=== PATIENT | female | born 1960 | race Caucasian/White ===

== ENCOUNTER 2023-10-12 04:27 | Emergency (ER) | payer OTHER ==
[2023-10-12] VITALS (15 sets, daily range): BP systolic 94–123; BP diastolic 43–65
[~2023-10-12] VITALS: Ht 170.2 cm; Wt 74.0 kg
[2023-10-12 06:09] LABS: BASO% 0.6 % (0-3); EOS% 3.4 % (0-8); HEMATOCRIT 33.1 % (37.0-47.0); HEMOGLOBIN 10.6 g/dl (12.0-16.0); IMMATURE GRANULOCYTES 0.2 % (0.0-5.0); LYMPH% 20.8 % (15-41); MEAN CELL VOLUME 99.1 fL CALC (80.0-100.0); MEAN CORPUSCULAR HGB 31.7 pG CALC (26.0-32.0); MONO% 7.2 % (2-13); NEUT# 3.2 thou/uL (2.00-7.15); NEUT% 67.8 % (42-76); RED BLOOD COUNT 3.34 mill/uL (4.20-5.60); RED CELL DISTRI WIDTH 13.2 % (11.5-15.5)
[2023-10-12 06:37] LABS: ALBUMIN 4.1 g/dL (3.2-5.0); ALKALINE PHOSPHATASE 66 u/l (38-126); ANION GAP 8 (6-22 (CALC)); BILIRUBIN, TOTAL 0.3 mg/dL (0.02-1.3); BUN 24 mg/dL (8-23); BUN/CREATININE RATIO 17 (12-20 (CALC)); CARBON DIOXIDE 26 mmol/l (22-30); CHLORIDE 105 mmol/l (95-108); CPK 64 u/l (30-135); CREATININE 1.4 mg/dL (0.5-1.0); ESTIMATED GFR 42 ML/MIN (>=90 (CALC)); ETHYL ALCOHOL 0 mg/dl (0-30); MAGNESIUM 1.9 mg/dL (1.6-2.3); POTASSIUM 3.9 mmol/l (3.5-5.1); SGOT/AST 25 u/l (9-36); SODIUM 135 mmol/l (137-146); TOTAL PROTEIN 6.7 g/dL (6.3-8.2)
[2023-10-12 07:43] LABS: URINE BLOOD DIPSTICK Negative (NEGATIVE); URINE GLUCOSE - DIPSTICK Negative (NEGATIVE); URINE KETONE Trace mg/dL (NEGATIVE); URINE LEUK ESTERASE Negative (NEGATIVE); URINE NITRITE - DIPSTICK Negative (Negative); URINE PH 5.5 (4.5-8.0); URINE PROTEIN - DIPSTICK Trace mg/dL (NEG-TRACE); URINE UROBILINOGEN - DIPSTICK 0.2 E.U./dL (0.2)
[2023-10-12 07:44] LABS: URINE COLOR Yellow
== END 2023-10-12 08:21 | disposition home or self-care (01) | DRG 948 ==
LOC: ED 04:27
PROVIDERS: Internal Medicine
DX: R41.82 Altered mental status, unspecified (principal)